=== PATIENT | female | born 1945 | race Caucasian/White ===

== ENCOUNTER 2022-09-29 09:22 | Outpatient (CLI) | payer MEDICARE, OTHER ==
--- NOTE | 2022-09-29 18:54 | Ultrasound Report ---
PROCEDURE: Abdomen Limited INDICATIONS: CALCULUS OF BILE DUCT W/O CHOLANGITIS OR CHOLECYST TECHNIQUE: Real-time scanning was performed of the right upper quadrant, with image documentation. COMPARISON: None. FINDINGS: Liver: Liver is normal in size and homogeneous in echotexture. Gallbladder: Gallbladder is nondistended. No stones or sludge. No gallbladder wall thickening. No per icholecystic fluid. Negative sonographic Thornton sign. Biliary ducts: Intrahepatic bile ducts are non-dilated. Extrahepatic bile duct caliber measures 4 m m. Normal is 6-7 mm or less in diameter, or 10 mm or less post-cholecystectomy. Pancreas: Visualized portions of the pancreas are sonographically normal. Right kidney: Measures 9 cm. Cortex 1.7 cm. No hydronephrosis. Miniscule fluid adjacent to the right kidney. IMPRESSION: 1. No acute cholecystitis. No gallstones. 2. No biliary ductal dilatation. 3. Miniscule fluid adjacent to the right kidney. Clinical significance of this finding is uncertain. On CTs nonspecific perinephric fluid is not an uncommon finding. CT abdomen pelvis with IV contrast could be considered for further evaluation. MRCP could also be con sidered to evaluate the bile ducts are clinically indicated. Reviewed by: Jos Chatman MD on 09/29/2022 6:52 PM PST Approved by: Jos Chatman MD on 09/29/2022 6:52 PM PST Station ID: [id number]
== END 2022-09-29 09:23 | disposition home or self-care (01) ==
LOC: DI 09:22
PROVIDERS: ATTEND Internal Medicine Medical Oncology
DX: K80.50 Calculus of bile duct without cholangitis or cholecystitis without obstruction (principal); R10.11 Right upper quadrant pain

== ENCOUNTER 2022-10-20 10:52 | Emergency (ER) | payer MEDICARE, OTHER ==
[2022-10-20 11:38] LABS: BASOPHILS % (AUTO) 0.6 %; EOSINOPHILS # (AUTO) 0.1 10^3/uL (0.0-0.7); EOSINOPHILS % (AUTO) 1.1 %; HCT - HEMATOCRIT 37.1 % (37.0-47.0); HGB - HEMOGLOBIN 12.5 g/dL (12.0-16.0); LYMPHOCYTES # (AUTO) 1.5 10^3/uL (1.5-3.5); LYMPHOCYTES % (AUTO) 27.3 %; MEAN CORPUSCULAR HEMOGLOBIN 30.8 pg (27.0-31.0); MEAN CORPUSCULAR HGB CONC 33.7 g/dL (32.0-36.0); MEAN CORPUSCULAR VOLUME 91.4 fL (81.0-99.0); MEAN PLATELET VOLUME 10.2 fL (7.9-10.8); MONOCYTES # (AUTO) 0.4 10^3/uL (0.0-1.0); MONOCYTES % (AUTO) 7.5 %; NEUTROPHILS # (AUTO) 3.4 10^3/uL (1.5-6.6); NEUTROPHILS % (AUTO) 63.3 %; PLT - PLATELET COUNT 301 10^3/uL (130-450); RED BLOOD COUNT 4.06 10^6/uL (4.20-5.40); RED CELL DISTRIBUTION WIDTH 12.6 % (12.0-15.0); WHITE BLOOD COUNT 5.3 x10^3/uL (4.8-10.8)
--- NOTE | 2022-10-20 12:00 | XRAY Report ---
PROCEDURE: Chest 1 View X-Ray INDICATIONS: Chest pain TECHNIQUE: One view of the chest was acquired. COMPARISON: None. FINDINGS: Surgical changes and devices: None. Lungs and pleura: No pleural effusions or pneumothorax. Lungs are clear. Mediastinum: Mediastinal contours appear normal. Heart size is normal. Bones and chest wall: No suspicious bony lesions. Overlying soft tissues appear unremarkable. IMPRESSION: Normal chest x-ray Reviewed by: Dimitris March on 10/20/2022 11:58 AM [facility] Approved by: Dimitris March on 10/20/2022 11:58 AM [facility] Station ID: [id number]
[2022-10-20 12:01] LABS: ALBUMIN 4.2 g/dL (3.2-5.5); ALBUMIN/GLOBULIN RATIO 1.5 (1.0-2.2); BILIRUBIN,TOTAL 0.7 mg/dL (0.2-1.0); CREATININE 1.1 mg/dL (0.4-1.0); POTASSIUM 4.5 mmol/L (3.5-5.0)
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
[2022-10-20 12:22] VITALS: BP 172/71
== END 2022-10-20 12:43 | disposition home or self-care (01) ==
LOC: ED 10:52
DX: R07.9 Chest pain, unspecified (principal); R79.89 Other specified abnormal findings of blood chemistry; E83.119 Hemochromatosis, unspecified
CPT/HCPCS: 36415; 80053; 83690; 84484; 85025; 93005; 99284

== ENCOUNTER 2023-01-20 13:39 | Outpatient (CLI) | payer MEDICARE, OTHER ==
[2023-01-20 19:51] LABS: BASOPHILS % (AUTO) 0.5 %; EOSINOPHILS # (AUTO) 0.1 10^3/uL (0.0-0.7); EOSINOPHILS % (AUTO) 1.6 %; HCT - HEMATOCRIT 34.3 % (37.0-47.0); HGB - HEMOGLOBIN 11.2 g/dL (12.0-16.0); LYMPHOCYTES % (AUTO) 32.3 %; MEAN CORPUSCULAR HEMOGLOBIN 31.2 pg (27.0-31.0); MEAN CORPUSCULAR HGB CONC 32.7 g/dL (32.0-36.0); MEAN CORPUSCULAR VOLUME 95.5 fL (81.0-99.0); MEAN PLATELET VOLUME 11.1 fL (7.9-10.8); MONOCYTES # (AUTO) 0.5 10^3/uL (0.0-1.0); MONOCYTES % (AUTO) 7.6 %; NEUTROPHILS # (AUTO) 3.6 10^3/uL (1.5-6.6); NEUTROPHILS % (AUTO) 57.8 %; PLT - PLATELET COUNT 250 10^3/uL (130-450); RED BLOOD COUNT 3.59 10^6/uL (4.20-5.40); RED CELL DISTRIBUTION WIDTH 13.4 % (12.0-15.0); WHITE BLOOD COUNT 6.2 x10^3/uL (4.8-10.8)
[2023-01-20 20:20] LABS: ALBUMIN 3.9 g/dL (3.2-5.5); ALBUMIN/GLOBULIN RATIO 1.5 (1.0-2.2); BILIRUBIN,TOTAL 0.9 mg/dL (0.2-1.0); CALCIUM 9.2 mg/dL (8.5-10.3); CREATININE 1.2 mg/dL (0.4-1.0); TOTAL PROTEIN 6.5 g/dL (6.7-8.2)
== END 2023-01-20 13:40 | disposition home or self-care (01) ==
LOC: LAB.S 13:39
PROVIDERS: ATTEND Internal Medicine
DX: I10 Essential (primary) hypertension (principal); E83.110 Hereditary hemochromatosis
CPT/HCPCS: 36415; 80053; 82728; 83540; 84466; 85025

== ENCOUNTER 2023-08-12 14:24 | Outpatient (CLI) | payer MEDICARE, OTHER ==
--- NOTE | 2023-08-12 16:42 | XRAY Report ---
PROCEDURE: Hand 3 View BILAT INDICATIONS: EROSIVE OSTEOARTHRITIS TECHNIQUE: 3 views of the hand(s) acquired. COMPARISON: None. FINDINGS: Bones: Mild erosion of the left, second distal interphalangeal joint, with osteophytosis. First CMC joint space narrowing with associated osteophytosis. Soft tissues: No suspicious soft tissue calcifications or masses. IMPRESSION: Erosive osteoarthritis versus psoriatic arthritis, isolated to the left second distal interphalangeal joint. Moderate first CMC osteoarthritis. Reviewed by: Griffin Carver on 08/12/2023 4:40 PM PST Approved by: Griffin Carver on 08/12/2023 4:40 PM [facility] Station ID: [id number]
== END 2023-08-12 14:25 | disposition home or self-care (01) ==
LOC: DI 14:24
PROVIDERS: ATTEND Internal Medicine
DX: M18.12 Unilateral primary osteoarthritis of first carpometacarpal joint, left hand (principal)

== ENCOUNTER 2023-11-15 11:04 | Outpatient (CLI) | payer MEDICARE, OTHER ==
--- NOTE | 2023-11-15 14:12 | Ultrasound Report ---
PROCEDURE: Renal (Retroperitoneal) INDICATIONS: RENAL INSUFFICIENCY TECHNIQUE: Real-time scanning was performed of the retroperitoneal organs, with image documentation. COMPARISON: Abdominal ultrasound 09/29/2022. FINDINGS: Kidneys: Kidneys are normal in size. Right kidney measures 9.8 cm long; left kidney measures 10 .0 cm long. Right renal cortical thickness is 0.9 cm; left renal cortical thickness is 1.4 cm. No patricia d masses, hydronephrosis, or nephrolithiasis. Bladder: Pre-void bladder volume is 69.9 mL. Post-void residual is 14.0 mL. Pre-void images demons trate no intraluminal masses or stones. On pre-void images, bilateral ureteral jets are noted with c olor Doppler interrogation. (Of note, ureteral jets may not be detectable in up to 25% of cases due to insufficient differences in specific gravity between ureteral and bladder urine). Miscellaneous: No free abdominal fluid. IMPRESSION: Normal sonographic appearance of the bilateral kidneys. No nephrolithiasis or hydronephrosis. Prevoid volume of 69.9 cc with postvoid residual volume of 14.0 cc. Bilateral ureteral jets visualize d. Reviewed by: Chantal Castellanos MD on 11/15/2023 2:10 PM PST Approved by: Chantal Castellanos MD on 11/15/2023 2:10 PM PST Station ID: [id number]
== END 2023-11-15 11:05 | disposition home or self-care (01) ==
LOC: DI 11:04
PROVIDERS: ATTEND Internal Medicine
DX: N28.9 Disorder of kidney and ureter, unspecified (principal); E83.110 Hereditary hemochromatosis; R06.09 Other forms of dyspnea; I34.0 Nonrheumatic mitral (valve) insufficiency
CPT/HCPCS: 93307

== ENCOUNTER 2023-12-07 09:05 | Outpatient (CLI) | payer MEDICARE, OTHER ==
[2023-12-07 09:18] LABS: BASOPHILS % (AUTO) 0.3 %; EOSINOPHILS # (AUTO) 0.1 10^3/uL (0.0-0.7); HCT - HEMATOCRIT 38.9 % (37.0-47.0); HGB - HEMOGLOBIN 12.7 g/dL (12.0-16.0); LYMPHOCYTES # (AUTO) 1.6 10^3/uL (1.5-3.5); LYMPHOCYTES % (AUTO) 26.9 %; MEAN CORPUSCULAR HEMOGLOBIN 30.8 pg (27.0-31.0); MEAN CORPUSCULAR HGB CONC 32.6 g/dL (32.0-36.0); MEAN CORPUSCULAR VOLUME 94.2 fL (81.0-99.0); MONOCYTES # (AUTO) 0.5 10^3/uL (0.0-1.0); MONOCYTES % (AUTO) 8.2 %; NEUTROPHILS # (AUTO) 3.7 10^3/uL (1.5-6.6); NEUTROPHILS % (AUTO) 62.4 %; PLT - PLATELET COUNT 284 10^3/uL (130-450); RED BLOOD COUNT 4.13 10^6/uL (4.20-5.40); RED CELL DISTRIBUTION WIDTH 12.9 % (12.0-15.0)
[2023-12-07 09:56] LABS: FERRITIN 37.6 ng/mL (11.0-306.8)
== END 2023-12-07 09:06 | disposition home or self-care (01) ==
LOC: LAB 09:05
PROVIDERS: ATTEND Internal Medicine
DX: E83.110 Hereditary hemochromatosis (principal)
CPT/HCPCS: 36415; 82728; 83540; 84466; 85025

== ENCOUNTER 2024-05-02 08:26 | Outpatient (CLI) | payer MEDICARE, OTHER ==
[2024-05-02 08:43] LABS: BASOPHILS % (AUTO) 0.4 %; EOSINOPHILS # (AUTO) 0.1 10^3/uL (0.0-0.7); EOSINOPHILS % (AUTO) 1.9 %; HCT - HEMATOCRIT 37.9 % (37.0-47.0); HGB - HEMOGLOBIN 12.4 g/dL (12.0-16.0); LYMPHOCYTES # (AUTO) 1.6 10^3/uL (1.5-3.5); LYMPHOCYTES % (AUTO) 33.1 %; MEAN CORPUSCULAR HEMOGLOBIN 30.7 pg (27.0-31.0); MEAN CORPUSCULAR HGB CONC 32.7 g/dL (32.0-36.0); MEAN CORPUSCULAR VOLUME 93.8 fL (81.0-99.0); MEAN PLATELET VOLUME 10.1 fL (7.9-10.8); MONOCYTES # (AUTO) 0.4 10^3/uL (0.0-1.0); MONOCYTES % (AUTO) 8.8 %; NEUTROPHILS # (AUTO) 2.7 10^3/uL (1.5-6.6); NEUTROPHILS % (AUTO) 55.6 %; PLT - PLATELET COUNT 270 10^3/uL (130-450); RED BLOOD COUNT 4.04 10^6/uL (4.20-5.40); RED CELL DISTRIBUTION WIDTH 12.9 % (12.0-15.0); WHITE BLOOD COUNT 4.8 x10^3/uL (4.8-10.8)
[2024-05-02 08:52] LABS: ALBUMIN 4.1 g/dL (3.2-5.5); ALBUMIN/GLOBULIN RATIO 1.5 (1.0-2.2); BILIRUBIN,TOTAL 0.9 mg/dL (0.2-1.0); CALCIUM 9.4 mg/dL (8.5-10.3); CREATININE 1.3 mg/dL (0.6-1.3); POTASSIUM 4.3 mmol/L (3.5-4.5); TOTAL PROTEIN 6.8 g/dL (6.4-8.9)
[2024-05-02 09:10] LABS: THYROID STIMULATING HORMONE 2.51 uIU/mL (0.34-5.60)
[2024-05-02 09:16] LABS: FERRITIN 69.4 ng/mL (11.0-306.8)
== END 2024-05-02 08:27 | disposition home or self-care (01) ==
LOC: LAB 08:26
PROVIDERS: ATTEND Internal Medicine
DX: E83.110 Hereditary hemochromatosis (principal); I10 Essential (primary) hypertension; E03.9 Hypothyroidism, unspecified
CPT/HCPCS: 36415; 80053; 82728; 83540; 84439; 84443; 84466; 84481; 85025

== ENCOUNTER 2024-09-13 12:30 | Inpatient (IN) ==
[2024-09-13 12:57] LABS: RAPID STREP SCREEN Negative (Negative)
--- NOTE | 2024-09-13 13:04 | ED Physician Documentation ---
History of Present Illness Stated complaint Stated Complaint: SOA Chief complaint Chief Complaint: Resp History obtained from History obtained from: Patient History of Present Illness Timing: Prior to arrival and Enter time Additonal information Additional information: Patient is a 78-year-old female past medical history of anemia and hypothyroidism presents to the ER with sore throat cough congestion and shortness of breath. Symptoms have been going on for about 9 days now. Patient denies any specific fevers but has had intermittent chills and diarrhea for the past few days. She notes it has slightly improved but she has been unable to eat or drink much to her persistent feelings of nausea. She has a productive cough that worsens when she is trying to lay flat she has orthopnea x 2 but no lower leg swelling. She has no wheezes no history of asthma or COPD no history of smoking. She has no chest pain associated with her symptoms shortly prior To her symptoms starting she attended a libertarian with lots of people unsure of any sick contacts there. She did not get her flu or COVID shot this year. Meds/Allgy Home Medications Ambulatory Orders Medication Instructions Recorded Confirmed levothyroxine 50 mcg tablet 50 mcg PO QAM #90 tabs 06/29/24 09/13/24 Allergies Allergies Allergy/AdvReac Type Severity Reaction Status Date / Time cephalexin (From Keflex) Allergy Unknown Verified 09/13/24 12:43 pneumococcal vaccine AdvReac Severe body Verified 09/13/24 12:43 swelling PFSH Medical History Medical History Cellulitis of right wrist Arthritis of hand Anemia Surgical History Surgical History Hx of BSO (bilateral salpingo-oophorectomy) Osteophyte of foot removal-big toe joint x 2 Family History Family History (Updated 08/03/24 @ 18:43 by Lorena Elizabeth MA) Father CVA (cerebral vascular accident) High blood pressure Mother High blood pressure Ovarian cancer Social History Social History (Updated 09/13/24 @ 14:08 by Dion Spence, RN) Smoking Status: Never smoker Do you dip or chew tobacco?: No Do you vape?: No Living arrangement: At home Relationship: Level: Independent Do you feel safe in your home environment?: Yes Suffered physical, verbal, emotional, or financial abuse?: No History of Abuse: No ETOH Use: None Frequency: Occasional Substance Use: denies use Exam Constitutional normal general appearance HENMT normocephalic and head/scalp atraumatic Eyes PERRL, EOMs intact bilaterally and conjunctivae normal Neck/C-Spine visual inspection normal Lymph palpable anterior cervical lymphadenopathy on examination Chest inspection of chest normal Respiratory breath sounds equal bilaterally Clear breath sounds equal bilaterally on auscultation the lungs. No wheezes rhonchi or rales no signs of retractions or use of accessory muscles. Cardiovascular normal heart rate noted, regular rhythm noted, no gallop and no rub Gastrointestinal abdomen normal to inspection Abdomen is soft without rebound or guarding on examination Skin skin color normal, no rash and no lesions Results Vitals Vitals: Vital Signs - 24 hr 09/13/24 12:32 Temperature 36.5 C Temperature Source Skin Pulse Rate 66 Respiratory Rate 17 Blood Pressure 183/79 H O2 Saturation 98 O2 Source Room air Pain Intensity 2 Oxygen O2 Source Room air Labs Labs: Laboratory Tests 09/13/24 09/13/24 09/13/24 12:30 13:17 13:40 WBC 6.8 RBC 3.49 L Hgb 10.8 L Hct 31.4 L MCV 90.0 MCH 30.9 MCHC 34.4 RDW 12.7 Plt Count 236 MPV 10.3 Neut # (Auto) 4.4 Lymph # (Auto) 1.6 [place] # (Auto) 0.6 Eos # (Auto) 0.1 Baso # (Auto) 0.0 Absolute Nucleated RBC 0.00 Nucleated RBC % 0.0 Sodium 122 L Potassium 4.3 Chloride 92 L Carbon Dioxide 23 Anion Gap 7.0 BUN 19 Creatinine 1.1 Estimated GFR (MDRD) 48 L Glucose 95 Calcium 9.1 Magnesium 2.0 Total Bilirubin 0.8 AST 27 ALT 15 Alkaline Phosphatase 48 Total Protein 6.7 Albumin 4.1 Globulin 2.6 Albumin/Globulin Ratio 1.6 Lipase 25 Urine Color YELLOW Urine Clarity CLEAR Urine pH 6.0 Ur Specific [place] 1.010 Urine Protein NEGATIVE Urine Glucose (UA) NEGATIVE Urine Ketones NEGATIVE Urine Occult Blood NEGATIVE Urine Nitrite NEGATIVE Urine Bilirubin NEGATIVE Urine Urobilinogen 0.2 (NORMAL) Ur Leukocyte Esterase NEGATIVE Ur Microscopic Review NOT INDICATED Urine Culture Comments NOT INDICATED Nasal Adenovirus (PCR) NOT DETECTED Nasal B. parapertussis DNA (PCR) NOT DETECTED Nasal Coronavir 229E PCR NOT DETECTED Nasal Coronavir HKU1 PCR NOT DETECTED Nasal Coronavir NL63 PCR NOT DETECTED Nasal Coronavir OC43 PCR NOT DETECTED Nasal Enterovir/Rhinovir PCR NOT DETECTED Nasal Influenza B PCR NOT DETECTED Nasal Influenza A PCR NOT DETECTED Nasal Parainfluen 1 PCR NOT DETECTED Nasal Parainfluen 2 PCR NOT DETECTED Nasal Parainfluen 3 PCR NOT DETECTED Nasal Parainfluen 4 PCR NOT DETECTED Nasal RSV (PCR) NOT DETECTED Nasal B.pertussis DNA PCR NOT DETECTED Nasal C.pneumoniae (PCR) NOT DETECTED Javier Human Metapneumo PCR NOT DETECTED Nasal M.pneumoniae (PCR) NOT DETECTED Nasal SARS-CoV-2 (PCR) NOT DETECTED Group A Strep Rapid Negative PD Medical Decision Making ED course Complexity details: reviewed old records and reviewed results ED course: Patient is a 78-year-old female presenting to the emergency department with sore throat cough shortness of breath. She presents with persistent symptoms going on for 9 days with generalized abdominal upset nausea symptoms and occasional diarrhea that seems to have improved on its own. She notes she continues to have difficulty eating due to persistent nausea generalized fatigue and persistent cough. She has generally healthy 78-year-old female but given the symptoms has been more fatigued and "not as sharp" according to her sister CXR: Mild opacity at the left costophrenic angle, possibly early airspace disease. No drainable effusions. Consider future imaging surveillance to assess for resolution. Labs returned here in the ED no significant leukocytosis mild anemia at 10.8 but this appears Close to baseline most recent 1 was 12.4 about 4 months ago but patient has had chronic lipase magnesium stable as well UA shows no signs of UTI. Additionally CMP is remarkable for hyponatremia of 122. Sodium was 136. Given steroids suspect this could be the cause however patient has been having significant amounts of diarrhea and nausea symptoms. Will start normal saline here in the ED as concerns for dehydration causing hyponatremia. Discussed case with hospitalist Dr. Rosa who is agreeable with admission. EKG pending at this time but she is agreeable with this plan. Azithromycin given here in the ED for coverage of pneumonia for possible mycoplasma pneumonia given prevalence in town recently. Patient agreeable with admission for IV fluids here in the ED. Discharge Plan Discharge Patient Disposition: 66 [facility] DC/Xfer Condition: Stable Clinical Impression: Acute hyponatremia, Left lower lobe pneumonia Prescriptions: No Action levothyroxine 50 mcg tablet 50 mcg PO QAM Qty: 90 3RF Print Language: French
[2024-09-13] MEDS: ONDANSETRON ODT 4 MG TABLET TL STA (13:20)
[2024-09-13] MEDS: FAMOTIDINE 20 MG TABLET PO STA (13:20)
--- NOTE | 2024-09-13 13:20 | XRAY Report ---
PROCEDURE: XR Chest 2V INDICATIONS: productive coughing/fever TECHNIQUE: 2 views of the chest were acquired. COMPARISON: 10/20/2022 FINDINGS: Surgical changes and devices: None. Lungs and pleura: Mild opacity is seen at the left costophrenic angle. No drainable effusions. Mediastinum: [Normal heart size, unchanged Bones and chest wall: Degenerative changes. IMPRESSION: Mild opacity at the left costophrenic angle, possibly early airspace disease. No drainable effusions. Consider future imaging surveillance to assess for resolution. Reviewed by: Tyler Damon MD on 09/13/2024 12:19 PM [facility] Approved by: Tyler Damon MD on 09/13/2024 12:19 PM [facility] Station ID: [id number]
[2024-09-13 13:28] LABS: BASOPHILS % (AUTO) 0.3 %; EOSINOPHILS # (AUTO) 0.1 10^3/uL (0.0-0.7); EOSINOPHILS % (AUTO) 0.9 %; HCT - HEMATOCRIT 31.4 % (37.0-47.0); HGB - HEMOGLOBIN 10.8 g/dL (12.0-16.0); LYMPHOCYTES # (AUTO) 1.6 10^3/uL (1.5-3.5); LYMPHOCYTES % (AUTO) 24.3 %; MEAN CORPUSCULAR HEMOGLOBIN 30.9 pg (27.0-31.0); MEAN CORPUSCULAR HGB CONC 34.4 g/dL (32.0-36.0); MEAN PLATELET VOLUME 10.3 fL (7.9-10.8); MONOCYTES # (AUTO) 0.6 10^3/uL (0.0-1.0); MONOCYTES % (AUTO) 9.2 %; NEUTROPHILS # (AUTO) 4.4 10^3/uL (1.5-6.6); PLT - PLATELET COUNT 236 10^3/uL (130-450); RED BLOOD COUNT 3.49 10^6/uL (4.20-5.40); RED CELL DISTRIBUTION WIDTH 12.7 % (12.0-15.0); WHITE BLOOD COUNT 6.8 x10^3/uL (4.8-10.8)
[2024-09-13] MEDS: AMOX/CLAV 875 MG/125 MG TABLET PO STA (13:39)
[2024-09-13] MEDS: AZITHROMYCIN 250 MG TABLET PO STA (13:39)
[2024-09-13 13:45] LABS: ALBUMIN 4.1 g/dL (3.2-5.5); ALBUMIN/GLOBULIN RATIO 1.6 (1.0-2.2); BILIRUBIN,TOTAL 0.8 mg/dL (0.2-1.0); CALCIUM 9.1 mg/dL (8.5-10.3); CREATININE 1.1 mg/dL (0.6-1.3); POTASSIUM 4.3 mmol/L (3.5-4.5); TOTAL PROTEIN 6.7 g/dL (6.4-8.9)
[2024-09-13 13:46] LABS: B. PARAPERTUSSIS- RESP PCR PAN NOT DETECTED; CORONAVIRUS 229E-RESP PCR NOT DETECTED; CORONAVIRUS HKU1-RESP PCR NOT DETECTED; CORONAVIRUS NL63-RESP PCR NOT DETECTED; CORONAVIRUS OC43-RESP PCR NOT DETECTED; HUMAN METAPNEUMOVIRUS NOT DETECTED; INFLUENZA A- RESP PCR PANEL NOT DETECTED; INFLUENZA B - RESP PCR PANEL NOT DETECTED; PARAINFLUENZA VIRUS 1 NOT DETECTED; PARAINFLUENZA VIRUS 2 NOT DETECTED; PARAINFLUENZA VIRUS 4 NOT DETECTED; RHINOVIRUS/ENTEROVIRUS NOT DETECTED; RSV- RESP PCR PANEL NOT DETECTED; SARS-CoV-2 -RESP PCR PANEL NOT DETECTED
[2024-09-13 13:51] LABS: BILIRUBIN,URINE NEGATIVE (NEGATIVE); GLUCOSE, URINE (UA) NEGATIVE (NEGATIVE); KETONES,URINE (UA) NEGATIVE (NEGATIVE); LEUKOCYTE ESTERASE, URINE NEGATIVE (NEGATIVE); NITRITE,URINE NEGATIVE (NEGATIVE); OCCULT BLOOD,URINE NEGATIVE (NEGATIVE); PROTEIN,URINE NEGATIVE (NEGATIVE); UROBILINOGEN,URINE 0.2 (NORMAL) E.U./dL (NORMAL)
[2024-09-13 13:52] LABS: CLARITY,URINE CLEAR (CLEAR)
[2024-09-13 13:53] LABS: B. PERTUSSIS- RESP PCR PANEL NOT DETECTED; C. PNEUMONIAE- RESP PCR PANEL NOT DETECTED; M. PNEUMONIAE- RESP PCR PANEL NOT DETECTED
[2024-09-13] MEDS: SODIUM CHLORIDE 0.9% 1,000 ML IV STA (14:34)
--- NOTE | 2024-09-13 14:45 | HISTORY & PHYSICAL EXAMINATION ---
Chief Complaint Chief Complaint Chief Complaint: Weakness, fatigue, cough History of Present Illness Admitted From Admitted From:: Home History Obtained From Records Reviewed: Yes History obtained from: Patient, patient's sister Raman Exam Limitations: None History of Present Illness HPI Comment/Other: Patient is a 78-year-old female with a history of hereditary hemochromatosis, hypothyroidism who presents for 9 days of persistent cough, fatigue, chills. Patient states that they went to a democrat on 02 September, and 2 days later, she started feeling sick. She has had a persistent cough. Initially was a dry cough, but now she is coughing up some clear sputum. She has had some chills on and off for the past couple days. Over the last few days, she has noticed that she has had loose stools, increasing stool volume, and has had decreased oral intake. In the ED, she is vitally stable. Blood pressure was elevated at 183/79, heart rate was 66, and she was saturating 98% on room air. Chest x-ray was done which showed mild opacity at left costophrenic angle. Lab work was done. It showed no leukocytosis. Hemoglobin was mildly low at 10.8. Her sodium was 122. Last it was checked, and 04/2024, it was 136. UA was negative, respiratory viral panel was negative, strep test was negative as well. She was then admitted for this hyponatremia. Meds/Allgy Home Medications Ambulatory Orders Medication Instructions Recorded Confirmed levothyroxine 50 mcg tablet 50 mcg PO QAM #90 tabs 06/29/24 09/13/24 Allergies Allergies Allergy/AdvReac Type Severity Reaction Status Date / Time cephalexin (From Keflex) Allergy Unknown Verified 09/13/24 12:43 pneumococcal vaccine AdvReac Severe body Verified 09/13/24 12:43 swelling PFSH Medical History Medical History Cellulitis of right wrist Arthritis of hand Anemia Surgical History Surgical History Hx of BSO (bilateral salpingo-oophorectomy) Osteophyte of foot removal-big toe joint x 2 Family History Family History Father CVA (cerebral vascular accident) High blood pressure Mother High blood pressure Ovarian cancer Social History Social History Smoking Status: Never smoker Do you dip or chew tobacco?: No Do you vape?: No Living arrangement: At home Relationship: Level: Independent Do you feel safe in your home environment?: Yes Suffered physical, verbal, emotional, or financial abuse?: No History of Abuse: No ETOH Use: None Frequency: Occasional Substance Use: denies use POLST Patient has POLST: No POLST Status: Full Code Review of Systems Constitutional Reports: Fatigue, Chills, Malaise and Weakness; Denies: Fever, Diaphoresis, Night sweats, Changes in appetite or eating habits, Poor appetite, Weight gain, Weight loss or Change in sleep pattern Eyes Denies: Pain, Irritation, Amaurosis, Blurry vision or Floaters Ears, nose, mouth, and throat Reports: Throat pain; Denies: Ear pain, Ear discharge, Hearing loss, Hearing aids, Change in hearing, Nasal pain, Nose bleeds, Nasal discharge, Neck pain, Throat swelling or Hoarseness Cardiovascular Denies: Irregular heart rate, chest pain, palpitations, edema, swelling of feet/ankles, Syncope, lightheadedness, shortness of breath with exertion or shortness of breath when lying down Respiratory Reports: Cough; Denies: Shortness of breath, Sputum production, Change in phlegm color, Wheezing, Apnea, Snoring, Pleuritic pain or Pain on inspiration Gastrointestinal Denies: Abdominal pain, Abdominal distention, Nausea, Vomiting, Poor appetite, Bile emesis or Moshe blood emesis Genitourinary Denies: Painful urination, Urinary frequency, Urinary urgency, Nocturia or Urinary incontinence Musculoskeletal Denies: Back pain, Neck pain, Extremity pain, Extremity swelling or Joint pain Integumentary/Breast Denies: Rash, Itching, Dryness, Skin pain, Skin tenderness, Skin swelling or New lesion Neurological Reports: General weakness and Weakness in extremities; Denies: Headache, Focal weakness, Numbness in extremities or Pre-existing deficit Psychiatric Denies: Depression, Anxiety, Mood swings, Panic attacks or Change in sleep pattern Endocrine Reports: Fatigue Hematologic/Lymphatic Denies: Anemia or Easy bruising Allergic/Immunologic Denies: Throat swelling or Wheezing Prior Level of Functionality: Fully independent of activities of daily living. Exam Constitutional normal general appearance, no apparent distress, average body habitus, no limitations and alert HENMT normocephalic, head/scalp atraumatic, hearing grossly normal bilaterally and external ears normal Eyes PERRL and conjunctivae normal Neck/C-Spine visual inspection normal and trachea midline Lymph no lymphedema noted Chest inspection of chest normal Respiratory breath sounds equal bilaterally, normal respiratory effort, auscultation abnormal and rales noted other (RUL and RLL) Cardiovascular normal heart rate noted, regular rhythm noted, gallop noted, rub noted and murmur noted Gastrointestinal abdomen normal to inspection, nontender to palpation, no hepatosplenomegaly, no masses and no pulsatile mass Genitourinary no CVA tenderness and bladder normal to palpation Back/Pelvis spine normal to inspection, no thoracic spine tenderness, no lumbar spine tenderness and thoracic spine ROM normal Extremities normal to inspection, normal to palpation, no tenderness and full ROM Neurology no movement abnormality noted, no focal motor deficit noted and no sensory deficits noted Psychiatry mental status grossly normal, oriented x3, thought process normal, cooperative and affect normal Skin skin color normal, no rash, no lesions and no ecchymosis noted Conclusion/Plan Problem List (1) Hyponatremia: Plan: Likely hypoosmolar, hypovolemic due to decreased p.o. intake, as well as diarrhea in the last few days. Continue normal saline at 75 cc/h. Will trend sodium every 4 hours. Goal correction of 6 to 8 mg once in the next 24 hours. (2) Community acquired pneumonia: Plan: Cough, chills for the past 9 days. Right lower lobe does show possible infiltrate on chest x-ray. Continue Augmentin and azithromycin for total of 5-day course. Continue to monitorpatient currently not having any fevers, no leukocytosis, etc. Qualifiers: Laterality: right Lung location: lower lobe of lung Qualified Code(s): J18.9 - Pneumonia, unspecified organism (3) Hypothyroidism: Plan: Continue home Synthroid 50 mcg daily. Qualifiers: Hypothyroidism type: unspecified Qualified Code(s): E03.9 - Hypothyroidism, unspecified (4) Hypertension: Plan: Patient is currently not taking any medications for this. She was previously prescribed losartan, but did not continue taking it due to side effects. Will continue to monitor while inpatient. Qualifiers: Hypertension type: unspecified Qualified Code(s): I10 - Essential (primary) hypertension (5) Hereditary hemochromatosis: Plan: Has a history of hemochromatosis requiring phlebotomy; last one was done last year. Was then told that she was anemic. Has not had one done since. Lab Results Lab results reviewed: Yes 09/13/24 13:17 09/13/24 13:17 Diagnostic Imaging Results Diagnostic Imaging Results: positive Final report reviewed Core Measures Anticipated LOS I expect patient to be DC'd or transferred within 96 hours.: Yes DVT/VTE - Prophylaxis VTE/DVT Device ordered at admit?: Yes VTE/DVT Prophylaxis med ordered at admit?: Yes Stroke - Rehab Assessment Rehab services assessment to be ordered?: No Not Ordered - Medical Reason: Not indicated AMI - Statin at Admit Aspirin Prescribed on Admit: No Not Ordered - Medical Reason: Not indicated
[2024-09-13] MEDS ORDERED: levoFLOXacin 750 MG TABLET PO ONE (15:00)
[2024-09-13] MEDS ORDERED: SODIUM CHLORIDE FLUSH 0.9% 10 ML SYRINGE IVP PRN (15:33)
--- NOTE | 2024-09-13 15:46 | PHARMACY PROGRESS NOTE ---
Best Possible Medication History Admit Date and Time: 09/13/24 [id number] Home Medications Medication Instructions Recorded Confirmed Type levothyroxine 50 mcg tablet 50 mcg PO QAM #90 tabs 06/29/24 09/13/24 Rx Processed by: Nursing (Confirmed with nursing while nursing was admitting the patient) Medications reviewed in ED?: No Medication History completed: Yes Secondary Source(s): Insurance records [facility] Statement: As the person ultimately responsible for medication therapy, providers are able to order a medication from an existing home medication list in [facility] via the "Reconcile Routine" prior to Confirmation of that medication by production support engineer. Such practice is discouraged except when the physician, in their clinical judgment, deems that a medical need exists for a medication without regard to previous use.
[2024-09-13] MEDS: SODIUM CHLORIDE FLUSH 0.9% 10 ML SYRINGE IVP SCH (15:49)
[2024-09-13] MEDS: SODIUM CHLORIDE 0.9% 1,000 ML IV SCH (15:49)
[2024-09-13 17:24] LABS: BILIRUBIN,URINE NEGATIVE (NEGATIVE); GLUCOSE, URINE (UA) NEGATIVE (NEGATIVE); KETONES,URINE (UA) TRACE mg/dL (NEGATIVE); LEUKOCYTE ESTERASE, URINE NEGATIVE (NEGATIVE); NITRITE,URINE NEGATIVE (NEGATIVE); OCCULT BLOOD,URINE NEGATIVE (NEGATIVE); PH,URINE 5.5 PH (5.0-7.5); PROTEIN,URINE NEGATIVE (NEGATIVE); UROBILINOGEN,URINE 0.2 (NORMAL) E.U./dL (NORMAL)
[2024-09-13 17:27] LABS: CLARITY,URINE CLEAR (CLEAR)
[2024-09-13] MEDS: AMOX/CLAV 875 MG/125 MG TABLET PO SCH (20:04)
[2024-09-14] MEDS: guaiFENesin 600 MG TABLET PO SCH (00:20)
[2024-09-14] MEDS: guaiFENesin/DEXTROMETHORPHAN 10 ML UDC PO PRN (02:12)
[2024-09-14 05:33] LABS: HCT - HEMATOCRIT 29.1 % (37.0-47.0); HGB - HEMOGLOBIN 10.1 g/dL (12.0-16.0); MEAN CORPUSCULAR HEMOGLOBIN 31.7 pg (27.0-31.0); MEAN CORPUSCULAR HGB CONC 34.7 g/dL (32.0-36.0); MEAN CORPUSCULAR VOLUME 91.2 fL (81.0-99.0); MEAN PLATELET VOLUME 10.7 fL (7.9-10.8); RED BLOOD COUNT 3.19 10^6/uL (4.20-5.40); RED CELL DISTRIBUTION WIDTH 12.7 % (12.0-15.0)
[2024-09-14 05:47] LABS: POTASSIUM 4.1 mmol/L (3.5-4.5)
[2024-09-14] MEDS: LEVOTHYROXINE 25 MCG TABLET PO SCH (06:21)
[2024-09-14] MEDS: SODIUM CHLORIDE 0.9% 500 ML IV ONE (07:35)
[2024-09-14] MEDS: AZITHROMYCIN 250 MG TABLET PO SCH (08:33)
[2024-09-14] MEDS: ENOXAPARIN 40 MG/0.4 ML SYRINGE SUBQ SCH (08:33)
[2024-09-14] MEDS: IBUPROFEN 600 MG TABLET PO PRN (08:35)
[2024-09-14] MEDS: SODIUM CHLORIDE 1 GM TABLET PO SCH ×2 (10:55→20:56)
--- NOTE | 2024-09-14 12:16 | Discharge Summary ---
"Discharge Summary Admit Date: 09/13/24 Discharge Date: 09/15/24 Discharging Provider: Dr. Serena Saucedo Primary Care Provider: Sandra Thornton Code Status: Attempt Resuscitation Discharge Facility Name: Home DIAGNOSES Admission Diagnoses: Hyponatremia Community-acquired pneumonia Hypothyroidism Hypertension Hereditary hemochromatosis Discharge Diagnoses with Status of Each Condition: Hyponatremiaresolving. Continue to encourage oral intake. Follow-up with primary care doctor in 1 week and get labs rechecked. Community-acquired pneumoniacontinue Augmentin and azithromycin for total 5-day course. Continue symptomatic treatment with cough syrup, pain control. Hypothyroidismcontinue home Synthroid. Hypertensionpatient currently not on any medications. Blood pressure mildly elevated here. Continue to follow-up with primary care provider in outpatient setting. Hereditary hemochromatosispatient's hemoglobin is currently stable. HPI History of Present Illness: Patient is a 78-year-old female with a history of hereditary hemochromatosis, hypothyroidism who presents for 9 days of persistent cough, fatigue, chills. Patient states that they went to a republican on 02 September, and 2 days later, she started feeling sick. She has had a persistent cough. Initially was a dry cough, but now she is coughing up some clear sputum. She has had some chills on and off for the past couple days. Over the last few days, she has noticed that she has had loose stools, increasing stool volume, and has had decreased oral intake. In the ED, she is vitally stable. Blood pressure was elevated at 183/79, heart rate was 66, and she was saturating 98% on room air. Chest x-ray was done which showed mild opacity at left costophrenic angle. Lab work was done. It showed no leukocytosis. Hemoglobin was mildly low at 10.8. Her sodium was 122. Last it was checked, and 04/2024, it was 136. UA was negative, respiratory viral panel was negative, strep test was negative as well. She was then admitted for this hyponatremia. CONSULTS | PROCEDURES Procedures: Chest x-ray HOSPITAL COURSE Hospital Course: Patient is a 78-year-old female with a history of hereditary hemochromatosis, hypothyroidism who presented for 9 days of persistent cough. She had some intermittent chills at that time. She does have a dry cough with no sputum production. She also had 1 to 2 days of loose stools with high-volume stool output. When she was admitted, she was found to be hyponatremic; her sodium was 122. While is been here, it has started to improve. She will be discharged on a 5-day course of Augmentin and azithromycin. She was advised to follow-up with her primary care doctor in 1 week to recheck her sodium. She demonstrated understanding. ALLERGIES Allergies Allergy/AdvReac Type Severity Reaction Status Date / Time cephalexin (From Keflex) Allergy Unknown Verified 09/13/24 12:43 pneumococcal vaccine AdvReac Severe body Verified 09/13/24 12:43 swelling MEDICATIONS Ambulatory Orders Medication Instructions Recorded Confirmed levothyroxine 50 mcg tablet 50 mcg PO QAM #90 tabs 06/29/24 09/13/24 amoxicillin 875 mg-potassium 1 tab PO BID 3 days #6 tabs 09/15/24 clavulanate 125 mg tablet azithromycin 250 mg tablet 250 mg PO DAILY 3 days #3 tabs 09/15/24 dextromethorphan-guaifenesin 10 10 ml PO Q6HR PRN Cough #237 mL 09/15/24 mg-100 mg/5 mL oral syrup guaifenesin 600 mg tablet, 600 mg PO BID #30 tabs 09/15/24 extended release 12 hr (Mucinex) ibuprofen 600 mg tablet 600 mg PO Q6HR PRN pain #30 tabs 09/15/24 sodium chloride 1,000 mg soluble 1,000 mg PO BID #3 tabs 09/15/24 tablet PHYSICAL EXAM AT DISCHARGE General Appearance: positive No acute distress and Alert; negative Anxious Eyes Bilateral: positive Normal inspection, PERRL and EOMI ENT: positive ENT inspection nml, Pharynx nml and No signs of dehydration Neck: positive Nml inspection, Thyroid nml and No JVD Respiratory: positive Chest non-tender, No respiratory distress and Breath sounds nml; negative Wheezes, Rales or Rhonchi Cardiovascular: positive Regular rate & rhythm, No murmur and No gallop; negative Diastolic murmur or Friction rub Peripheral Pulses: positive 2+ Abdomen: positive Non-tender; negative Nml bowel sounds, Guarding, Rebound, Hepatomegaly, Splenomegaly or Mass Back: positive Nml inspection; negative CVA tenderness (R) or CVA tenderness (L) Skin: positive Color nml, No rash, Warm and Dry Extremities: positive Non-tender, Full ROM and Nml appearance Neurologic/Psychiatric: positive Oriented x3 and Mood/affect nml LABS 09/15/24 05:45 09/15/24 05:45 DIAGNOSTIC IMAGING Diagnostic Imaging Results: Final report reviewed QUALITY (Female Hip Fx Only) Was patient sent home on osteoporosis medication?: No FOLLOW UP Follow Up: Follow up with primary care physician. TIME SPENT Time Spent in Discharge (Minutes): 35 Discharge Plan Discharge Patient Disposition: Home, Self Care Condition: Stable Prescriptions: New amoxicillin-pot clavulanate 875-125 mg Tablet 1 tab PO BID 3 Days Qty: 6 0RF azithromycin 250 mg Tablet 250 mg PO DAILY 3 Days Qty: 3 0RF guaifenesin [Mucinex] 600 mg Tablet Extended Release 12hr 600 mg PO BID Qty: 30 0RF dextromethorphan-guaifenesin 10-100 mg/5 mL Syrup 10 ml PO Q6HR PRN (Reason: Cough) Qty: 237 0RF ibuprofen 600 mg Tablet 600 mg PO Q6HR PRN (Reason: pain) Qty: 30 0RF sodium chloride 1,000 mg Tablet,Soluble 1,000 mg PO BID Qty: 3 0RF Continued levothyroxine 50 mcg tablet 50 mcg PO QAM Qty: 90 3RF Activity Restrictions: Activity as Tolerated Diet: Regular Health Concerns: You came in because you had a persistent cough for over 9 days. Your chest x- ray did show a possible pneumonia. You will require total of 5 days of antibiotics. I have sent both of these antibiotics to your pharmacy. While you are here, you are found to have a low sodium. This is improved. I do want you to take 3 more pills of the sodium tablet and limit your fluid intake to 2000 cc until your re-check. I want you to follow-up with your primary care provider in a week to have this rechecked. We are glad you are feeling better, thank you for allowing us to take care of you. Care Plan Goals: 1. Take your antibiotics as prescribedAugmentin twice a day for 3 more days, azithromycin once a day for 3 more days. 2. Take 3 more doses of your salt tablet. Limit your fluid intake to about 2 L a day for the next week. 3. Follow-up with your primary care doctor in 1 week to recheck your sodium levels. Print Language: Lao Patient Instructions: Hyponatremia Dc, Pneumonia Dc Stand Alone Forms: PCP List Follow-up Care: Sandra Thornton MD [Provider Admit Priv/Credential] - 1 Week (Please recheck sodium levels (was as low as 122, discharged with level of 130).)"
--- NOTE | 2024-09-14 14:34 | PROVIDER PROGRESS NOTE ---
Subjective Subjective Subjective: Patient continues to have a cough. She is not bringing anything up. She denies any fevers or chills. She is tired because she did not get much sleep as the cough kept waking her up. Current Medications Current Medications Current Medications: Current Medications Generic Name Dose Route Start Last Admin Trade Name Freq PRN Reason Stop Dose Admin Amoxicillin/Clavulanate Potassium 1 tab 09/13/24 21:00 09/14/24 08:33 Amox/Clav 875 Mg/125 Mg Tablet PO 1 tab BID MALIKA Administration Azithromycin 250 mg 09/14/24 09:00 09/14/24 08:33 Azithromycin 250 Mg Tablet PO 250 mg DAILY MALIKA Administration Enoxaparin Sodium 40 mg 09/14/24 09:00 09/14/24 08:33 Enoxaparin 40 Mg/0.4 Ml Syringe SUBQ Not Given DAILY MALIKA Guaifenesin 600 mg 09/14/24 00:00 09/14/24 08:33 Guaifenesin 600 Mg Tablet PO 600 mg BID MALIKA Administration Guaifenesin 10 ml 09/14/24 01:56 09/14/24 02:12 Guaifenesin/Dextromethorphan 10 Ml Udc PO 10 ml Q6HR PRN Administration Cough Ibuprofen 600 mg 09/14/24 08:24 09/14/24 08:35 Ibuprofen 600 Mg Tablet PO 600 mg Q6HR PRN Administration pain Levothyroxine Sodium 50 mcg 09/14/24 07:00 09/14/24 06:21 Levothyroxine 25 Mcg Tablet PO 50 mcg QDAC MALIKA Administration Sodium Chloride 10 ml 09/13/24 15:33 Sodium Chloride Flush 0.9% 10 Ml Syringe IVP PRN PRN NEEDED PER PROVIDER ORDERS Sodium Chloride 10 ml 09/13/24 17:00 09/14/24 08:33 Sodium Chloride Flush 0.9% 10 Ml Syringe IVP 10 ml 0100,0900,1700 MALIKA Administration Sodium Chloride 1 gm 09/14/24 21:00 Sodium Chloride 1 Gm Tablet PO BID MALIKA Objective Vital Signs/Intake & Output Reviewed Vital Signs: Yes Vital Signs: Vital Signs x48h Temp Pulse Resp BP Pulse Ox 09/14/24 07:43 98.1 F 56 L 16 132/59 H 96 Intake & Output: Intake & Output 09/11/24 09/12/24 09/13/24 09/14/24 23:59 23:59 23:59 23:59 Intake Total 1750 / 1750 3580 / 3580 Output Total 200 / 200 Balance 1750 / 1750 3380 / 3380 Weight (kg) 69.5 kg Objective General Appearance: positive No acute distress and Alert Eyes Bilateral: positive Normal inspection, PERRL and EOMI ENT: positive ENT inspection nml, Pharynx nml and No signs of dehydration Neck: positive Nml inspection, Thyroid nml, No JVD and Trachea midline Respiratory: positive Chest non-tender, No respiratory distress and Breath sounds nml Cardiovascular: positive Regular rate & rhythm, No murmur and No gallop Abdomen: positive Non-tender, No organomegaly and No distention; negative Guarding, Rebound, Hepatomegaly, Splenomegaly or Mass Back: positive Nml inspection; negative CVA tenderness (R) or CVA tenderness (L) Skin: positive Color nml, No rash, Warm and Dry Extremities: positive Non-tender, Full ROM, Nml appearance and No pedal edema Neurologic/Psychiatric: positive Oriented x3 and Mood/affect nml Lab Results 09/14/24 05:08 09/14/24 13:39 Other Labs: Lab Results x24hrs 09/14/24 09/14/24 09/14/24 Range/Units 13:39 08:58 05:08 WBC 6.0 (4.8-10.8) x10^3/uL RBC 3.19 L (4.20-5.40) 10^6/uL Hgb 10.1 L (12.0-16.0) g/dL Hct 29.1 L (37.0-47.0) % MCV 91.2 (81.0-99.0) fL MCH 31.7 H (27.0-31.0) pg MCHC 34.7 (32.0-36.0) g/dL RDW 12.7 (12.0-15.0) % Plt Count 210 (130-450) 10^3/uL MPV 10.7 (7.9-10.8) fL Sodium 125 L 124 L 124 L (135-145) mmol/L Potassium 4.1 (3.5-4.5) mmol/L Chloride 97 L (101-111) mmol/L Carbon Dioxide 20 L (21-32) mmol/L Anion Gap 7.0 (6-13) BUN 16 (6-20) mg/dL Creatinine 1.0 (0.6-1.3) mg/dL Estimated GFR (MDRD) 54 L (>89) Glucose 92 (74-104) mg/dL Calcium 8.0 L (8.5-10.3) mg/dL Urine Color Urine Clarity (CLEAR) Urine pH (5.0-7.5) PH Ur Specific Fries (1.002-1.030) Urine Protein (NEGATIVE) mg/dL Urine Glucose (UA) (NEGATIVE) mg/dL Urine Ketones (NEGATIVE) mg/dL Urine Occult Blood (NEGATIVE) Urine Nitrite (NEGATIVE) Urine Bilirubin (NEGATIVE) Urine Urobilinogen (NORMAL) E.U./dL Ur Leukocyte Esterase (NEGATIVE) Ur Microscopic Review Urine Culture Comments 09/14/24 09/13/24 09/13/24 Range/Units 01:10 20:56 17:15 WBC (4.8-10.8) x10^3/uL RBC (4.20-5.40) 10^6/uL Hgb (12.0-16.0) g/dL Hct (37.0-47.0) % MCV (81.0-99.0) fL MCH (27.0-31.0) pg MCHC (32.0-36.0) g/dL RDW (12.0-15.0) % Plt Count (130-450) 10^3/uL MPV (7.9-10.8) fL Sodium 123 L 123 L (135-145) mmol/L Potassium (3.5-4.5) mmol/L Chloride (101-111) mmol/L Carbon Dioxide (21-32) mmol/L Anion Gap (6-13) BUN (6-20) mg/dL Creatinine (0.6-1.3) mg/dL Estimated GFR (MDRD) (>89) Glucose (74-104) mg/dL Calcium (8.5-10.3) mg/dL Urine Color YELLOW Urine Clarity CLEAR (CLEAR) Urine pH 5.5 (5.0-7.5) PH Ur Specific Fries 1.015 (1.002-1.030) Urine Protein NEGATIVE (NEGATIVE) mg/dL Urine Glucose (UA) NEGATIVE (NEGATIVE) mg/dL Urine Ketones TRACE (NEGATIVE) mg/dL Urine Occult Blood NEGATIVE (NEGATIVE) Urine Nitrite NEGATIVE (NEGATIVE) Urine Bilirubin NEGATIVE (NEGATIVE) Urine Urobilinogen 0.2 (NORMAL) (NORMAL) E.U./dL Ur Leukocyte Esterase NEGATIVE (NEGATIVE) Ur Microscopic Review NOT INDICATED Urine Culture Comments NOT INDICATED 09/13/24 Range/Units 17:03 WBC (4.8-10.8) x10^3/uL RBC (4.20-5.40) 10^6/uL Hgb (12.0-16.0) g/dL Hct (37.0-47.0) % MCV (81.0-99.0) fL MCH (27.0-31.0) pg MCHC (32.0-36.0) g/dL RDW (12.0-15.0) % Plt Count (130-450) 10^3/uL MPV (7.9-10.8) fL Sodium 125 L (135-145) mmol/L Potassium (3.5-4.5) mmol/L Chloride (101-111) mmol/L Carbon Dioxide (21-32) mmol/L Anion Gap (6-13) BUN (6-20) mg/dL Creatinine (0.6-1.3) mg/dL Estimated GFR (MDRD) (>89) Glucose (74-104) mg/dL Calcium (8.5-10.3) mg/dL Urine Color Urine Clarity (CLEAR) Urine pH (5.0-7.5) PH Ur Specific Fries (1.002-1.030) Urine Protein (NEGATIVE) mg/dL Urine Glucose (UA) (NEGATIVE) mg/dL Urine Ketones (NEGATIVE) mg/dL Urine Occult Blood (NEGATIVE) Urine Nitrite (NEGATIVE) Urine Bilirubin (NEGATIVE) Urine Urobilinogen (NORMAL) E.U./dL Ur Leukocyte Esterase (NEGATIVE) Ur Microscopic Review Urine Culture Comments Diagnostic Imaging Diagnostic Imaging Results: positive Final report reviewed Assessment/Plan Problem List (1) Hyponatremia: Impression: Upon further questioning, patient states that she was drinking copious amounts of fluids at home. This, combined with the fact that despite multiple liters of fluid her sodium is barely moving, this may be more of a polydipsia type picture. Will stop IV fluids at this time, continue sodium chloride tablets 1 g twice daily. Will continue to monitor sodium levels closely. (2) Community acquired pneumonia: Impression: Cough, chills for the past 9 days. Right lower lobe does show possible infiltrate on chest x-ray. Continue Augmentin and azithromycin for total of 5-day course. Continue to monitorpatient currently not having any fevers, no leukocytosis, etc. Qualifiers: Laterality: right Lung location: lower lobe of lung Qualified Code(s): J18.9 - Pneumonia, unspecified organism (3) Hypothyroidism: Impression: Continue home Synthroid 50 mcg daily. Qualifiers: Hypothyroidism type: unspecified Qualified Code(s): E03.9 - Hypothyroidism, unspecified (4) Hypertension: Impression: Patient is currently not taking any medications for this. She was previously prescribed losartan, but did not continue taking it due to side effects. Will continue to monitor while inpatient. Qualifiers: Hypertension type: unspecified Qualified Code(s): I10 - Essential (primary) hypertension (5) Hereditary hemochromatosis: Impression: Has a history of hemochromatosis requiring phlebotomy; last one was done last year. Was then told that she was anemic. Has not had one done since.
[2024-09-15 06:08] LABS: HCT - HEMATOCRIT 28.5 % (37.0-47.0); HGB - HEMOGLOBIN 9.7 g/dL (12.0-16.0); MEAN CORPUSCULAR HEMOGLOBIN 31.1 pg (27.0-31.0); MEAN CORPUSCULAR VOLUME 91.3 fL (81.0-99.0); MEAN PLATELET VOLUME 10.7 fL (7.9-10.8); RED BLOOD COUNT 3.12 10^6/uL (4.20-5.40); RED CELL DISTRIBUTION WIDTH 12.9 % (12.0-15.0); WHITE BLOOD COUNT 5.3 x10^3/uL (4.8-10.8)
[2024-09-15 06:23] LABS: CALCIUM 7.8 mg/dL (8.5-10.3); CREATININE 1.1 mg/dL (0.6-1.3); POTASSIUM 4.3 mmol/L (3.5-4.5)
[2024-09-15 08:15] VITALS: BP 150/62; TEMP 98.1; O2SAT 96
== END 2024-09-15 13:13 | disposition home or self-care (01) | DRG 640 ==
LOC: MS3 12:30 → ED 12:30 → MS3 15:44
PROVIDERS: ADMIT Internal Medicine; ATTEND Internal Medicine
DX: J18.9 Pneumonia, unspecified organism; I10 Essential (primary) hypertension; Z79.890 Hormone replacement therapy; Z79.899 Other long term (current) drug therapy; D64.9 Anemia, unspecified; E83.110 Hereditary hemochromatosis; J02.9 Acute pharyngitis, unspecified; E03.9 Hypothyroidism, unspecified; E87.1 Hypo-osmolality and hyponatremia; R19.7 Diarrhea, unspecified; R09.81 Nasal congestion; R11.0 Nausea; R53.83 Other fatigue